=== PATIENT | female | born 1980 | race Caucasian/White ===

== ENCOUNTER 2017-11-19 09:22 | Emergency (ER) | payer MEDICAID ==
[2017-11-19] MEDS ORDERED: NORMAL SALINE 1000 ML 1,000 ML IV ONE (11:05)
--- NOTE | 2017-11-19 11:06 | ER Document Report ---
ED Medical Screen (RME) - General Chief Complaint: Abdominal Pain Stated Complaint: ABDOMINAL PAIN Time Seen by Provider: 11/19/17 11:03 Notes: Patient presents with severe right upper quadrant abdominal pain. She states she had gastric bypass surgery 6 months ago. She has had one episode of vomiting. TRAVEL OUTSIDE OF THE [place] IN LAST 30 DAYS: No - Related Data Allergies/Adverse Reactions: Penicillins Allergy (Verified 11/19/17 09:24) Physical Exam - Vital signs Vitals: Temp Pulse Resp BP Pulse Ox 98.7 F 84 16 126/86 H 100 11/19/17 09:27 11/19/17 09:27 11/19/17 09:27 11/19/17 09:27 11/19/17 09:27 Course - Vital Signs Vital signs: Temp Pulse Resp BP Pulse Ox 98.7 F 84 16 126/86 H 100 11/19/17 09:27 11/19/17 09:27 11/19/17 09:27 11/19/17 09:27 11/19/17 09:27
[2017-11-19 11:44] LABS: APPEARANCE,URINE SLIGHTLY-CLOUDY; BILIRUBIN,URINE NEGATIVE (NEGATIVE); COLOR,URINE YELLOW; GLUCOSE, URINE NEGATIVE (NEGATIVE); KETONES,URINE NEGATIVE (NEGATIVE); LEUKOCYTE ESTERASE,URINE TRACE (NEGATIVE); NITRITE,URINE NEGATIVE (NEGATIVE); PROTEIN,URINE NEGATIVE (NEGATIVE); URINE SPECIFIC GRAVITY 1.021
[2017-11-19 11:57] LABS: ABSOLUTE EOSINOPHILS # (AUTO) 0.2 10^3/uL (0.0-0.6); ABSOLUTE LYMPHOCYTES (AUTO) 0.9 10^3/uL (0.5-4.7); ABSOLUTE MONOCYTES (AUTO) 0.4 10^3/uL (0.1-1.4); ABSOLUTE NEUT (AUTO) 3.1 10^3/uL (1.7-8.2); BASOPHILS % (AUTO) 0.5 % (0-2); EOSINOPHILS % (AUTO) 3.5 % (0-6); HEMATOCRIT 41.7 % (36.0-47.0); HEMOGLOBIN 13.9 g/dL (12.0-15.5); LYMPHOCYTES % (AUTO) 19.2 % (13-45); MEAN CORPUSCULAR HEMOGLOBIN 29.2 pg (27.0-33.4); MEAN CORPUSCULAR HGB CONC 33.4 g/dL (32.0-36.0); MEAN CORPUSCULAR VOLUME 87 fl (80-97); MONOCYTES % (AUTO) 8.5 % (3-13); PLATELET COUNT 159 10^3/uL (150-450); RED BLOOD COUNT 4.78 10^6/uL (3.72-5.28); RED CELL DISTRIBUTION WIDTH 14.3 % (11.5-14.0); SEGMENTED NEUTROPHILS % (AUTO) 68.3 % (42-78); TOTAL CELLS COUNTED % (AUTO) 100 %; WHITE BLOOD COUNT 4.5 10^3/uL (4.0-10.5)
[2017-11-19 12:18] LABS: ALANINE AMINOTRANSFERASE 45 U/L (9-52); ALBUMIN 4.5 g/dL (3.5-5.0); ALKALINE PHOSPHATASE 57 U/L (38-126); ANION GAP 9 (5-19); ASPARTATE AMINO TRANSFERASE 28 U/L (14-36); BILIRUBIN,DIRECT 0.2 mg/dL (0.0-0.4); BILIRUBIN,TOTAL 0.5 mg/dL (0.2-1.3); BLOOD UREA NITROGEN 13 mg/dL (7-20); CALCIUM 9.9 mg/dL (8.4-10.2); CARBON DIOXIDE 27 mmol/L (22-30); CHLORIDE 106 mmol/L (98-107); GLUCOSE 83 mg/dL (75-110); LIPASE 83.7 U/L (23-300); POTASSIUM 4.4 mmol/L (3.6-5.0); SODIUM 141.8 mmol/L (137-145); TOTAL PROTEIN 6.9 g/dL (6.3-8.2)
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
--- NOTE | 2017-11-19 14:30 | ER Document Report ---
ED General - General Stated Complaint: ABDOMINAL PAIN Time Seen by Provider: 11/19/17 11:03 TRAVEL OUTSIDE OF THE [place] IN LAST 30 DAYS: No - HPI Patient complains to provider of: Abdominal pain Notes: Patient coming in for abdominal pain states ongoing for the last 1-2 weeks. Patient states abdominal pain epigastric right upper quadrant whenever she eats. Patient states she is postop from a Barry-en-Y bariatric surgery approximate 6 months. Patient states this was performed in [facility]. Patient states she has not recently followed up with her bariatric surgeon is that he is so far away. Patient denies any other medical issues denies fevers chills nausea vomiting diarrhea. - Related Data Allergies/Adverse Reactions: Penicillins Allergy (Verified 11/19/17 09:24) Past Medical History - Social History Smoking Status: Never Smoker Frequency of alcohol use: Rare Drug Abuse: None Family History: Reviewed & Not Pertinent Patient has suicidal ideation: No Patient has homicidal ideation: No Renal/ Medical History: Denies: Hx Peritoneal Dialysis Review of Systems - Review of Systems Constitutional: No symptoms reported EENT: No symptoms reported Cardiovascular: No symptoms reported Respiratory: No symptoms reported Gastrointestinal: Abdominal pain Genitourinary: No symptoms reported Female Genitourinary: No symptoms reported Musculoskeletal: No symptoms reported Skin: No symptoms reported Hematologic/Lymphatic: No symptoms reported Neurological/Psychological: No symptoms reported Physical Exam - Vital signs Vitals: Temp Pulse Resp BP Pulse Ox 98.7 F 84 16 126/86 H 100 11/19/17 09:27 11/19/17 09:27 11/19/17 09:27 11/19/17 09:27 11/19/17 09:27 Interpretation: Normal - General General appearance: Appears well, Alert - HEENT Head: Normocephalic, Atraumatic Eyes: Normal Pupils: PERRL - Respiratory Respiratory status: No respiratory distress Chest status: Nontender Breath sounds: Normal Chest palpation: Normal - Cardiovascular Rhythm: Regular Heart sounds: Normal auscultation Murmur: No - Abdominal Inspection: Normal Distension: No distension Bowel sounds: Normal Tenderness: Nontender. No: Tender, McBurney's point, Thomas's sign, Guarding, Rebound Organomegaly: No organomegaly - Back Back: Normal, Nontender - Extremities General upper extremity: Normal inspection, Nontender, Normal color, Normal ROM , Normal temperature General lower extremity: Normal inspection, Nontender, Normal color, Normal ROM , Normal temperature, Normal weight bearing. No: Leonid's sign - Neurological Neuro grossly intact: Yes Cognition: Normal Orientation: AAOx4 Clinton Coma Scale Eye Opening: Spontaneous Lele Coma Scale Verbal: Oriented Lele Coma Scale Motor: Obeys Commands Lele Coma Scale Total: 15 Speech: Normal Motor strength normal: LUE, RUE, LLE, RLE Sensory: Normal - Psychological Associated symptoms: Normal affect, Normal mood - Skin Skin Temperature: Warm Skin Moisture: Dry Skin Color: Normal Course - Re-evaluation Re-evalutation: 11/19/17 15:59 Patient coming in for acute abdominal pain exacerbated by eating. More likely patient has underlying gastritis. Is concerned for possible erosions at her suture sites because of the bariatric surgery. Otherwise abdominal examination benign no tenderness no guarding or rebound. I feel that the patient would benefit from Carafate PPI and will give nausea medication. Because of lack of GI coverage here I did consult with transfer team at [facility] I was given Dr. Dheeraj Espinoza's information as he is a bariatric surgeon in the area also given information for [facility]. This plans the patient that she can call these to follow-up recommend calling today. Otherwise patient will be discharged home agrees with this plan. - Vital Signs Vital signs: Temp Pulse Resp BP Pulse Ox 98.6 F 75 16 150/99 H 98 11/19/17 14:33 11/19/17 14:33 11/19/17 09:27 11/19/17 14:33 11/19/17 14:33 - Laboratory Result Diagrams: 11/19/17 11:45 11/19/17 11:45 Laboratory results interpreted by me: 11/19/17 11/19/17 11:16 11:45 RDW 14.3 H Urine Urobilinogen 2.0 H Ur Leukocyte Esterase TRACE H Discharge - Discharge Clinical Impression: Abdominal pain Qualifiers: Abdominal location: epigastric Qualified Code(s): R10.13 - Epigastric pain Instructions: Abdominal Pain ([facility]), Gastritis ([facility]) Additional Instructions: Your laboratory studies today and ultrasound did not show any significant pathology. Your history of abdominal pain especially with eating and your gastric bypass surgery is concerning for possible gastritis inflammation of the stomach lining or possible development of erosions or ulcers at the suture lines. I think it is important that you follow-up with a parts manager or a bariatric surgeon. Dr Dheeraj Espinoza MD [address] [place] [address] The above physician is a bariatric surgeon [place] that she may want to try to follow-up [facility] [employer]ter in [place], [place] [address] [place] [address] Return to the ER symptoms worsen Prescriptions: Omeprazole 20 mg PO DAILY #30 capsule. Ondansetron [Zofran Odt] 4 mg PO Q6 PRN #30 tab.rapdis PRN Reason: For Nausea/Vomiting Sucralfate [Carafate 1 gm Tablet] 1 gm PO ACHS #120 tablet Tramadol HCl [Ultram 50 mg Tablet] 50 mg PO ASDIR PRN #20 tablet PRN Reason: Forms: Return to Work
[2017-11-19 14:34] VITALS: BP 150/99
== END 2017-11-19 14:54 | disposition home or self-care (01) ==
LOC: ER 09:22
DX: R10.13 Epigastric pain (principal); R10.11 Right upper quadrant pain; Z98.84 Bariatric surgery status; Z88.0 Allergy status to penicillin
CPT/HCPCS: 99284; 96360; 36415; 83690; 85025; 81025; 80053; 81001; 76705; J7030

== ENCOUNTER 2020-01-13 09:52 | Emergency (ER) | payer OTHER ==
[2020-01-13 09:59] VITALS: BP 185/115
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
[2020-01-13 10:34] LABS: ABSOLUTE EOSINOPHILS # (AUTO) 0.3 10^3/uL (0.0-0.6); ABSOLUTE LYMPHOCYTES (AUTO) 1.3 10^3/uL (0.5-4.7); ABSOLUTE MONOCYTES (AUTO) 0.4 10^3/uL (0.1-1.4); ABSOLUTE NEUT (AUTO) 3.3 10^3/uL (1.7-8.2); BASOPHILS % (AUTO) 0.6 % (0-2); EOSINOPHILS % (AUTO) 4.9 % (0-6); HEMATOCRIT 36.6 % (36.0-47.0); HEMOGLOBIN 12.4 g/dL (12.0-15.5); LYMPHOCYTES % (AUTO) 24.9 % (13-45); MEAN CORPUSCULAR HEMOGLOBIN 27.2 pg (27.0-33.4); MEAN CORPUSCULAR HGB CONC 33.7 g/dL (32.0-36.0); MEAN CORPUSCULAR VOLUME 81 fl (80-97); PLATELET COUNT 233 10^3/uL (150-450); RED BLOOD COUNT 4.54 10^6/uL (3.72-5.28); RED CELL DISTRIBUTION WIDTH 15.2 % (11.5-14.0); SEGMENTED NEUTROPHILS % (AUTO) 62.6 % (42-78); TOTAL CELLS COUNTED % (AUTO) 100 %; WHITE BLOOD COUNT 5.3 10^3/uL (4.0-10.5)
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
[2020-01-13 10:58] LABS: ALBUMIN 4.6 g/dL (3.5-5.0); ALKALINE PHOSPHATASE 53 U/L (38-126); ANION GAP 6 (5-19); ASPARTATE AMINO TRANSFERASE 22 U/L (14-36); BILIRUBIN,TOTAL 0.3 mg/dL (0.2-1.3); BLOOD UREA NITROGEN 17 mg/dL (7-20); CALCIUM 9.8 mg/dL (8.4-10.2); CARBON DIOXIDE 31 mmol/L (22-30); CHLORIDE 104 mmol/L (98-107); GLUCOSE 90 mg/dL (75-110); POTASSIUM 5.5 mmol/L (3.6-5.0); TOTAL PROTEIN 7.4 g/dL (6.3-8.2)
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
--- NOTE | 2020-01-13 15:54 | EKG REPORT ---
SEVERITY:- ABNORMAL ECG - SINUS RHYTHM CONSIDER LEFT VENTRICULAR HYPERTROPHY BORDERLINE T ABNORMALITIES, INFERIOR LEADS : Confirmed by: Gloria Meza MD 13-Jan-2020 15:53:20
== END 2020-01-13 11:38 | disposition home or self-care (01) ==
LOC: ER 09:52
DX: S16.1XXA Strain of muscle, fascia and tendon at neck level, initial encounter (principal); I10 Essential (primary) hypertension; M54.2 Cervicalgia; M25.511 Pain in right shoulder; R20.0 Anesthesia of skin; H43.399 Other vitreous opacities, unspecified eye; V87.7XXA Person injured in collision between other specified motor vehicles (traffic), initial encounter; Z88.0 Allergy status to penicillin
CPT/HCPCS: 36415; 70450; 72125; 80053; 85025; 93005; 93010; 99284